=== PATIENT | male | born 1950 | race African-American/Black ===

== ENCOUNTER 2017-09-30 09:27 | Outpatient (CLI) | payer BC ==
[2017-09-30 10:57] LABS: PTT 30.4 SEC (22.9-36.1)
[2017-09-30 11:01] LABS: Prothrombin Time 12.3 SEC (12.0-14.7)
[2017-09-30 11:15] LABS: Anion Gap 11 mmol/L (10-20); BUN (Urea Nitrogen) 12 mg/dL (8.4-25.7); Calc. Creatinine Clearance 0 mL/min (70-130); Calcium 9.9 mg/dL (7.8-10.44); Carbon Dioxide 27 mmol/L (23-31); Chloride 106 mmol/L (98-107); Estimated GFR-MDRD 87
[2017-09-30 11:29] LABS: Mean Platelet Volume 6.4 fL (7.4-10.4); Neutrophil 25 % (42-75); Red Blood Cell (RBC) Count 5.35 mill/uL (4.70-6.10); White Blood Cell (WBC) Count 4.2 thou/uL (4.8-10.8)
--- NOTE | 2017-10-01 07:53 | EKG ---
Test Reason : Blood Pressure : / mmHG Vent. Rate : 063 BPM Atrial Rate : 063 BPM P-R Int : 252 ms QRS Dur : 090 ms QT Int : 374 ms P-R-T Axes : 038 -01 016 degrees QTc Int : 382 ms Sinus rhythm with 1st degree A-V block ST elevation, consider early repolarization, pericarditis, or injury Abnormal ECG When compared with ECG of 01-JAN-2004 13:16, T wave amplitude has increased in Anterior leads Confirmed by CARMEN ROSA ([id number]) on 10/01/2017 7:52:39 AM Referred By: CHERYL Confirmed By:CARMEN ROSA
== END 2017-09-30 09:28 | disposition home or self-care (01) ==
LOC: LABBT 09:27
PROVIDERS: ATTEND Urology
DX: Z01.818 Encounter for other preprocedural examination (principal); D49.4 Neoplasm of unspecified behavior of bladder
CPT/HCPCS: 93005; 93010

== ENCOUNTER 2017-10-06 07:43 | Day surgery (SDC) | payer BC ==
[2017-09-30 10:04] VITALS: BMI 30.2
[2017-10-06] MEDS ORDERED: Fentanyl 100 MCG/2 ML VIAL ONE (09:04)
[2017-10-06] MEDS ORDERED: Midazolam HCl 2 mg/2 ml Vial ONE (09:04)
[2017-10-06] MEDS ORDERED: Levofloxacin 500 mg/D5W 100 ml Premix Bag ONE (09:18)
[2017-10-06] MEDS ORDERED: mitoMYcin 40 MG, Mitomycin 10 MG in Sodium Chloride 0.9% 50 ML IV SCH ×6 (09:30)
[2017-10-06] MEDS ORDERED: Iothalamate Meglumine 60% 50 ML VIAL FS ONE (10:54)
--- NOTE | 2017-10-06 11:19 | OP ---
DATE OF PROCEDURE: 10/06/2017 PREOPERATIVE DIAGNOSIS: Bladder tumors. POSTOPERATIVE DIAGNOSIS: Bladder tumors. PROCEDURE PERFORMED: Cystoscopy, bilateral retrogrades, transurethral resection of bladder tumor. SURGEON: Dr. Jonny Tee ANESTHETIC: General. ESTIMATED BLOOD LOSS: 50 mL. DRAINS PLACED: A 20-[place] Solis catheter with 20 mL in the balloon. FINDINGS: There was mild meatal stenosis. We dilated him up to 26 [place] African with Jaqui sounds. Th ere were 2 ureteral orifices with clear efflux. Retrograde studies appeared normal to my review with out filling defect or hydronephrosis or other abnormality. There was papillary tumors along the ante rior wall and a nest of them and some separate little patches. These were resected and sent off. OPERATIVE TECHNIQUE: After obtaining written and verbal consent from the patient, he was taken to e operating suite. He received IV antibiotics, Levaquin 500mg. He was placed in the supine position on the OR table. PlexiPulses were placed on his lower extremities and turned on. He was given a ge neral anesthetic, oral obturator intubation. He was placed in the dorsal lithotomy position and ster ilely prepped and draped. Cystoscopy was performed with a 22 [place] sheath. His meatus was tight an d was gently dilated prior to doing this. The bladder was examined with a 30 and 70 degree lens. A shipwright helper KUB was taken with the fluoroscopy unit. A 5 [place] Pollack catheter was flushed with contrast and placed in the right ureteral orifice and slowly injected in a retrograde manner, about 12 mL, le ft side done in the same manner. The findings are as above. Both sides drained well. We then went ahead and passed a 24 [place] resectoscope sheath with visual obturator and 30 degree lens, a gyrus ge nerator current and gyrus bladder tumor loop and a 30 degree lens were used with an Vick resectos cope, we resected bladder tumor, it was difficult because of its location, we had to just do it slowl y, but we got through it all safely, cauterizing as we went. We elliked out the chips at the end. O n reinspecting there was no evidence of active bleeding, no evidence of any chips remaining in the bl adder and could not see any other obvious tumor sites. At this point, Solis catheter was sterilely i nserted. It was hand irrigated a couple times, it was clear. Then, we passed 50 mL of mitomycin C i nto the bladder and it will be left in and will be drained in the recovery room. He was awakened, ex tubated, and taken by stretcher to the recovery room.
[2017-10-06] MEDS ORDERED: Morphine 4 MG/ML VIAL ONE ×2 (11:51→12:17)
[2017-10-06] MEDS ORDERED: PHENYLEPHRINE-NS 100 MCG/ML 10 ML SYRINGE ONE (15:49)
[2017-10-06] MEDS ORDERED: Lidocaine 1% PF 5 ML VIAL ONE (15:49)
[2017-10-06] MEDS ORDERED: Propofol 200 MG/20 ML VIAL ONE (15:49)
[2017-10-06] MEDS ORDERED: Dexamethasone 20 MG/5 ML VIAL ONE (15:49)
[2017-10-06] MEDS ORDERED: Ondansetron HCl/PF 4 MG/2 ML Vial ONE (15:49)
[2017-10-06] MEDS ORDERED: Glycopyrrolate 0.2 MG/ML 5 ML SYRINGE ONE (15:49)
--- NOTE | 2017-10-06 16:07 | RAD ---
RETROGRADE IVP: Comparison: None. History: Nephrolithiasis. FINDINGS: Multiple limited intraoperative fluoroscopy views of a retrograde IVP were submitted for interpretati on. Contrast is seen in both renal collecting systems. No obvious filling defects are seen. No obvious ca lcifications are seen in the distal aspect of the ureters on the initial exam. There is possibly a ca lcification projecting over the lower pole of the right kidney. IMPRESSION: Possible right nephrolithiasis. POS: [facility]
== END 2017-10-07 13:40 | disposition home or self-care (01) ==
LOC: SDC 07:43
PROVIDERS: ATTEND Urology
PROC: 0TBB8ZX Excision of Bladder, Via Natural or Artificial Opening Endoscopic, Diagnostic (ICD-10-PCS; principal; 2017-10-06)
PROC: 0T7D8ZZ Dilation of Urethra, Via Natural or Artificial Opening Endoscopic (ICD-10-PCS; 2017-10-07)
DX: D49.4 Neoplasm of unspecified behavior of bladder (principal); I10 Essential (primary) hypertension; E78.5 Hyperlipidemia, unspecified; M19.90 Unspecified osteoarthritis, unspecified site; Z79.82 Long term (current) use of aspirin; Z79.899 Other long term (current) drug therapy; Z98.890 Other specified postprocedural states
CPT/HCPCS: 74420; 88305; 88341; 88342; J1100; J1956; J2001; J2250; J2270; J2405; J2704; J3010; J7050; J9280; Q9961

== ENCOUNTER 2017-10-09 17:39 | Emergency (ER) | payer BC ==
[2017-10-09] MEDS ORDERED: Diazepam 5 MG TAB ONE (20:01)
--- NOTE | 2017-10-09 20:53 | RAD ---
FOUR VIEWS CERVICAL SPINE 10/09/17 HISTORY: Neck pain. AP, lateral, open mouth odontoid and swimmer's views cervical spine is obtained. Four views cervical spine demonstrate disc space height loss with anterior and posterior osteophytes at C3-4, C4-5, C5-6, and C6-7. This is compatible with changes of spondylosis. No evidence of acute c ervical spine fractures seen. The odontoid is unremarkable. Lateral masses of C1 and C2 are unremarka ble. IMPRESSION: Mid and lower cervical changes of spondylosis. POS: [facility]
== END 2017-10-09 20:04 | disposition home or self-care (01) ==
LOC: ERS 17:39
DX: S16.1XXA Strain of muscle, fascia and tendon at neck level, initial encounter (principal); E78.5 Hyperlipidemia, unspecified; I10 Essential (primary) hypertension; Z79.899 Other long term (current) drug therapy; X58.XXXA Exposure to other specified factors, initial encounter
CPT/HCPCS: 72040

== ENCOUNTER 2018-03-04 09:18 | Day surgery (SDC) | payer BC, MEDICARE ==
[2018-03-03 15:45] VITALS: BMI 29.4
[2018-03-04 09:56] LABS: Anion Gap 11 mmol/L (10-20); BUN (Urea Nitrogen) 12 mg/dL (8.4-25.7); Calc. Creatinine Clearance 94 mL/min (70-130); Carbon Dioxide 25 mmol/L (23-31); Chloride 109 mmol/L (98-107); Estimated GFR-MDRD 90; Glucose 102 mg/dL (80-115); Potassium 4.5 mmol/L (3.5-5.1); Sodium 140 mmol/L (136-145)
[2018-03-04 10:00] LABS: Prothrombin Time 12.9 SEC (12.0-14.7)
[2018-03-04 10:01] LABS: PTT 30.5 SEC (22.9-36.1)
[2018-03-04] MEDS ORDERED: Iothalamate Meglumine 60% 50 ML VIAL FS ONE (10:13)
[2018-03-04] MEDS ORDERED: CEFAZOLIN/Water 2 GM/20 ML SYRINGE ONE (10:14)
[2018-03-04 10:16] LABS: Hemoglobin 15.1 g/dL (14.0-18.0); Mean Corpuscular HGB CONC 31.1 g/dL (32.0-36.0); Mean Corpuscular Hemoglobin 28.7 pg (27.0-31.0); Mean Corpuscular Volume 92.3 fl (80.0-94.0); Mean Platelet Volume 6.5 fL (7.4-10.4); Platelet Count 215 thou/uL (130-400); RBC Distribution Width 13.8 % (11.5-14.5); Red Blood Cell (RBC) Count 5.27 mill/uL (4.70-6.10); White Blood Cell (WBC) Count 4.9 thou/uL (4.8-10.8)
[2018-03-04 10:20] LABS: Band 1 % (5-11); Eosinophils 5 % (0-10); Lymphocytes 57 % (21-51); MDiff Complete? YES; Monocytes 7 % (0-10); Neutrophil 25 % (42-75); RBC Morphology Normal; Reactive Lymphocytes 5 % (0-10)
[2018-03-04] MEDS ORDERED: Fentanyl 100 MCG/2 ML VIAL ONE (10:28)
[2018-03-04] MEDS ORDERED: Midazolam HCl 2 mg/2 ml Vial ONE (11:36)
--- NOTE | 2018-03-04 13:49 | RAD ---
RETROGRADE IVP: Date: 03/04/18 HISTORY: Bladder cancer. COMPARISON: 09/30/17. FINDINGS: Intraoperative fluoroscopy was provided for Dr. Tee. Four fluoroscopic images are submitted for in terpretation. There is retrograde opacification of the left intra and extrarenal collecting system. N o evidence of obstruction or dilatation. IMPRESSION: Intraoperative fluoroscopy as above. POS: [place]
[2018-03-04] MEDS ORDERED: Dexamethasone 20 MG/5 ML VIAL ONE (14:37)
[2018-03-04] MEDS ORDERED: Lidocaine 1% PF 5 ML VIAL ONE (14:37)
[2018-03-04] MEDS ORDERED: diphenhydrAMINE 50 MG/ML VIAL ONE (14:37)
[2018-03-04] MEDS ORDERED: PROPOFOL 200 MG/20 ML VIAL ONE (14:37)
--- NOTE | 2018-03-04 20:07 | OP ---
DATE OF PROCEDURE: 03/04/2018 PREOPERATIVE DIAGNOSES: 1. History of transitional carcinoma of the bladder. 2. History of induction BCG. POSTOPERATIVE DIAGNOSES: 1. History of transitional carcinoma of the bladder. 2. History of induction BCG. PROCEDURES PERFORMED: Cystoscopy, bilateral retrogrades, biopsy of old tumor site, and random bladde r biopsies. SURGEON: Dr Jonny Tee. ANESTHETIC: General with oral obturator intubation. ESTIMATED BLOOD LOSS: Less than 75 mL. FINDINGS: No evidence of stricture disease. He has a moderate to large prostate on cystoscopic exam , mostly lateral lobes. He has got 2 ureteral orifices with clear efflux. Retrograde studies on bot h sides failed to show any persistent filling defects or areas of obstruction. He had necrotic tissu e overlying his prior resection site along the right anterior wall. This was removed with biopsy for ceps and we did biopsies of this tumor base. He also had random bladder biopsies done. There was no obvious tumor, foreign body, or stone noted. A rectal exam done at the end of the case revealed nor mal rectal tone, moderately enlarged 1+ prostate, a little firmness on the right side worse than the left side. OPERATIVE TECHNIQUE: After obtaining written and verbal consent from the patient after receiving IV antibiotics, he was taken to the operating suite. He was placed in supine position on the treatment table. PlexiPulses were placed on his lower extremities and turned on. He was given a general anest hetic and oral intubation. He was placed in the dorsal lithotomy position and he was sterilely prepp ed and draped. Personal Attendant KUB was taken with the fluoroscopy unit. Cystoscopy was performed with a 22-Fr ench sheath. This was well lubricated and passed under direct vision through the male urethra into t he urinary bladder with aid of a video camera monitor and a 30-degree lens. The bladder was filled a nd emptied a number of times as it was examined both with the 30 and the 70-degree lens. A 5-[place] tip catheter was flushed with contrast and brought in. The distal end was placed in the left ureteral orifice and contrast was injected slowly in a retrograde manner. Images were ta elina as this was done. There was an air bubble in the proximal ureter that dissipated. There was no persistent filling defects or abnormalities noted to my review. The right side was done in a similar manner, probably about 12-15 mL were used on the left and 12-15 mL were used on the right were taken and then did appear to drain well. At this point, we used a pair of flexible biopsy forceps t o remove the necrotic tissue on the surface of the old TUR site and then we did biopsies of this site and then we did random bladder biopsies after that. These were sent as two separate specimens. We then used a Bugbee electrode to cauterize. The Solis catheter was not placed. At the end, bladder s training instruments were removed. A rectal exam was done. The patient at this point was taken out of dorsal lithotomy position, awakened, extubated, and taken by stretcher to the recovery room.
== END 2018-03-04 14:32 | disposition home or self-care (01) ==
LOC: SDC 09:18
PROVIDERS: ATTEND Urology
PROC: 0TBB8ZX Excision of Bladder, Via Natural or Artificial Opening Endoscopic, Diagnostic (ICD-10-PCS; principal; 2018-03-04)
DX: C67.3 Malignant neoplasm of anterior wall of bladder (principal); Z98.890 Other specified postprocedural states
CPT/HCPCS: 36415; 74420; 80048; 85025; 85610; 85730; 88305; 93005; 93010; J1100; J1200; J2001; J2250; J2704; J3010; Q9961

== ENCOUNTER 2018-08-23 20:30 | Outpatient (CLI) | payer BC, MEDICARE | END 2018-08-23 20:31 | disposition home or self-care (01) | LOC: SLEEPLAB 20:30 | PROVIDERS: ATTEND Specialist | DX: G47.33 Obstructive sleep apnea (adult) (pediatric) (principal); R53.83 Other fatigue; R09.89 Other specified symptoms and signs involving the circulatory and respiratory systems; R06.83 Snoring; I10 Essential (primary) hypertension; G47.10 Hypersomnia, unspecified; G47.00 Insomnia, unspecified; Z68.30 Body mass index [BMI] 30.0-30.9, adult | CPT/HCPCS: 95811 ==